=== PATIENT | male | born 1960 | race Hispanic/Latino ===

== ENCOUNTER 2023-12-09 09:37 | Outpatient (CLI) | payer BC | END 2023-12-09 09:38 | disposition home or self-care (01) | LOC: SCSRAD 09:37 | PROVIDERS: ATTEND Internal Medicine Nephrology | DX: M47.816 Spondylosis without myelopathy or radiculopathy, lumbar region (principal); M47.814 Spondylosis without myelopathy or radiculopathy, thoracic region; M47.812 Spondylosis without myelopathy or radiculopathy, cervical region; N20.0 Calculus of kidney; M10.9 Gout, unspecified; K64.9 Unspecified hemorrhoids; D64.9 Anemia, unspecified; R80.9 Proteinuria, unspecified | CPT/HCPCS: 72040; 72072; 72100 ==